=== PATIENT | female | born 1950 | race African-American/Black ===

== ENCOUNTER 2016-10-24 15:03 | Inpatient (IN) | payer MEDICARE, MEDICAID ==
[~2016-10-24] VITALS: Ht 160 cm; Wt 72.6 kg
[~2016-10-24 15:03] MED LIST: GLIP5TAB73 PO; METF500T4 PO
[2016-10-24] MEDS ORDERED: SODIUM CHLORIDE 0.9% 1,000 ML IV ONE (15:17)
[2016-10-24] MEDS ORDERED: IPRATROPIUM BROMIDE (0.02%) 0.5MG/2.5ML NEB HHN STA (15:23)
[2016-10-24] MEDS ORDERED: ALBUTEROL (0.083%) 2.5MG/3ML NEB HHN STA (15:23)
[2016-10-24] MEDS ORDERED: LEVOFLOXACIN 500MG PREMIX 100 ML IV ONE (15:30)
[2016-10-24 16:06] LABS: BASOPHILS % 0.7 % (0.0-2.0); EOSINOPHILS % 1.6 % (0.0-5.0); HEMATOCRIT. 38.7 % (36.0-48.0); HEMOGLOBIN. 12.4 g/dL (12.0-16.0); LYMPHOCYTES % 35.7 % (20.0-50.0); MEAN CORPUSCULAR HEMOGLOBIN 26.6 pg (28.0-32.0); MEAN CORPUSCULAR HGB CONC 32.1 g/dL (31.0-37.0); MEAN CORPUSCULAR VOLUME 82.8 fL (81.0-99.0); MEAN PLATELET VOLUME 8.5 fl (7.4-10.4); MONOCYTES % 7.5 % (2.0-8.0); NEUTROPHILS % 54.5 % (40.0-76.0); PLATELET 398 x1000/uL (130-400); RED BLOOD CELL COUNT 4.67 mill/uL (4.2-5.4); WHITE BLOOD COUNT 11.6 x1000/uL (4.5-11.0)
[2016-10-24 16:07] LABS: PARTIAL THROMBOPLASTIN TIME 27.7 sec (24.0-34.0); PROTHROMBIN TIME 10.3 sec
[2016-10-24 16:10] LABS: ALANINE AMINOTRANSFERASE 29 IU/L (13-61); ALBUMIN 3.2 g/dL (3.4-5.0); ANION GAP 14; CALCIUM 9.3 mg/dL (8.5-10.1); CARBON DIOXIDE 29 mEq/L (21-32); CHLORIDE 102 mEq/L (98-107); INDEX HEMOLYSI 1 (1-3); INDEX ICTERIC 1 (1-4); INDEX LIPEMIC 1 (1-3); UREA NITROGEN BLOOD 15 mg/dL (7-21)
[2016-10-24 16:13] LABS: CREATINE KINASE 116 IU/L (26-192); eGFR > 60 mL/min (>60)
[2016-10-24 16:15] LABS: CREATINE KINASE MB FRACTION < 0.5 ng/mL (0.5-3.6); NT PRO B-TYPE NATRIURETIC PEP 404 pg/mL (5-125); TROPONIN I < 0.02 ng/mL (0.00-0.04)
[2016-10-24 16:56] LABS: CLARITY URINE CLOUDY (CLEAR); COLOR URINE YELLOW (YELLOW); GLUCOSE URINE 1+ (NEGATIVE); KETONES URINE NEGATIVE (NEGATIVE); LEUKOCYTE ESTERASE URINE NEGATIVE (NEGATIVE); NITRITE URINE NEGATIVE (NEGATIVE); OCCULT BLOOD URINE NEGATIVE (NEGATIVE); PH URINE 7.5 (4.5-8.0); PROTEIN URINE 2+ (NEGATIVE); SPECIFIC GRAVITY URINE 1.023 (1.005-1.030)
[2016-10-24 17:36] LABS: MUCUS URINE TRACE /lpf (< = 2+); RBC URINE 0-2 /hpf (0-2); SQUAMOUS EPITHELIAL CELL URINE 1+ /lpf (RARE/1+); WBC URINE 0-2 /hpf (0-2)
[2016-10-24 17:51] LABS: BACTERIA URINE 1+
[2016-10-24] MEDS ORDERED: HYDROCODONE/ACETAMINOPHEN 5/325MG TABLET PO PRN (18:45)
[2016-10-24] MEDS ORDERED: ONDANSETRON HCL 4MG/2ML VIAL IV PRN (18:45)
[2016-10-24] MEDS ORDERED: ACETAMINOPHEN 325MG TABLET PO PRN (18:45)
[2016-10-24] MEDS ORDERED: GUAIFENESIN 200MG/10ML SUGAR FREE UDC PO PRN (18:45)
[2016-10-24] MEDS ORDERED: CLONIDINE 0.1MG TABLET PO PRN (19:00)
[2016-10-24] MEDS ORDERED: DEXTROSE 50% WATER 50ML SYRINGE IV PRN (19:15)
[2016-10-24] MEDS ORDERED: SODIUM CHLORIDE 0.9% 1,000 ML IV SCH (19:17)
[2016-10-24 20:00] VITALS: BP 141/68
[2016-10-24] MEDS: BLOOD SUGAR DIAGNOSTIC STRIP TEST SCH (21:00)
[2016-10-24] MEDS: ENOXAPARIN 40MG/0.4ML SYR SUBCUT SCH ×3 (21:00→22:46)
[2016-10-24] MEDS: AZITHROMYCIN 500 MG in DEXT 5% WATER 250 ML IV SCH (22:39)
[2016-10-24] MEDS: INSULIN LISPRO 100 UNITS/ML SUBCUT SCH (23:06)
[2016-10-25] VITALS: BP 132/62
[2016-10-25 04:00] VITALS: BP 138/63
[2016-10-25 06:40] LABS: BASOPHILS % 0.7 % (0.0-2.0); EOSINOPHILS % 1.5 % (0.0-5.0); HEMATOCRIT. 34.4 % (36.0-48.0); HEMOGLOBIN. 11.2 g/dL (12.0-16.0); LYMPHOCYTES % 37.5 % (20.0-50.0); MEAN CORPUSCULAR HEMOGLOBIN 26.9 pg (28.0-32.0); MEAN CORPUSCULAR HGB CONC 32.5 g/dL (31.0-37.0); MEAN CORPUSCULAR VOLUME 82.7 fL (81.0-99.0); MEAN PLATELET VOLUME 8.6 fl (7.4-10.4); MONOCYTES % 8.7 % (2.0-8.0); NEUTROPHILS % 51.6 % (40.0-76.0); PLATELET 370 x1000/uL (130-400); RED BLOOD CELL COUNT 4.16 mill/uL (4.2-5.4); RED CELL DISTRIBUTION WIDTH 13.8 % (11.6-14.6); WHITE BLOOD COUNT 10.6 x1000/uL (4.5-11.0)
[2016-10-25 07:04] LABS: CHLORIDE 103 mEq/L (98-107); INDEX HEMOLYSI 1 (1-3); INDEX ICTERIC 1 (1-4); INDEX LIPEMIC 1 (1-3)
[2016-10-25] MEDS: BLOOD SUGAR DIAGNOSTIC STRIP TEST SCH ×4 (07:06→21:00)
[2016-10-25 07:23] LABS: ANION GAP 12; CALCIUM 8.9 mg/dL (8.5-10.1); CARBON DIOXIDE 29 mEq/L (21-32); UREA NITROGEN BLOOD 12 mg/dL (7-21); eGFR > 60 mL/min (>60)
[2016-10-25 08:00] VITALS: BP 177/85
[2016-10-25] MEDS: METFORMIN HCL 500MG TABLET PO SCH ×2 (08:27→18:16)
[2016-10-25] MEDS: ASPIRIN 81MG TABLET PO SCH (08:27)
[2016-10-25] MEDS: INSULIN LISPRO 100 UNITS/ML SUBCUT SCH ×4 (08:27→21:00)
[2016-10-25] MEDS: GLIPIZIDE 5MG TABLET PO SCH ×2 (08:27→18:15)
[2016-10-25 12:00] VITALS: BP 158/73
[2016-10-25] MEDS: AMLODIPINE 5MG TABLET PO SCH ×2 (13:20→22:04)
[2016-10-25] MEDS: INSULIN DETEMIR UD 100 UNITS/ML SYR SUBCUT SCH (14:30)
[2016-10-25 16:00] VITALS: BP 129/88
[2016-10-25] MEDS: CEFTRIAXONE 1 G PREMIX 50 ML IV SCH (18:16)
[2016-10-25 20:00] VITALS: BP 126/73
[2016-10-25] MEDS: AZITHROMYCIN 500 MG in DEXT 5% WATER 250 ML IV SCH (22:01)
[2016-10-25] MEDS: ENOXAPARIN 40MG/0.4ML SYR SUBCUT SCH (22:02)
[2016-10-25] MEDS: LISINOPRIL 10MG TABLET PO SCH (22:03)
[2016-10-26] VITALS: BP 133/53
[2016-10-26 04:00] VITALS: BP 148/71
[2016-10-26] MEDS: BLOOD SUGAR DIAGNOSTIC STRIP TEST SCH ×4 (07:30→21:39)
[2016-10-26] MEDS: GLIPIZIDE 5MG TABLET PO SCH ×2 (07:31→18:02)
[2016-10-26 08:00] VITALS: BP 142/85
[2016-10-26] MEDS: METFORMIN HCL 500MG TABLET PO SCH ×2 (08:25→18:02)
[2016-10-26] MEDS: ASPIRIN 81MG TABLET PO SCH (08:26)
[2016-10-26] MEDS: AMLODIPINE 5MG TABLET PO SCH ×2 (08:26→22:02)
[2016-10-26] MEDS: LISINOPRIL 10MG TABLET PO SCH (08:26)
[2016-10-26] MEDS: INSULIN LISPRO 100 UNITS/ML SUBCUT SCH ×4 (08:27→22:10)
[2016-10-26] MEDS: INSULIN DETEMIR UD 100 UNITS/ML SYR SUBCUT SCH (11:09)
[2016-10-26 12:00] VITALS: BP 142/68
[2016-10-26 16:00] VITALS: BP 113/64
[2016-10-26] MEDS: CEFTRIAXONE 1 G PREMIX 50 ML IV SCH (18:06)
[2016-10-26 20:00] VITALS: BP 139/77
[2016-10-26] MEDS: AZITHROMYCIN 500 MG in DEXT 5% WATER 250 ML IV SCH (22:01)
[2016-10-26] MEDS: ENOXAPARIN 40MG/0.4ML SYR SUBCUT SCH (22:01)
[2016-10-27] VITALS: BP 152/76
[2016-10-27 04:00] VITALS: BP 128/67
[2016-10-27] MEDS: BLOOD SUGAR DIAGNOSTIC STRIP TEST SCH ×3 (07:21→17:02)
[2016-10-27] MEDS: GLIPIZIDE 5MG TABLET PO SCH ×2 (07:21→17:20)
[2016-10-27] MEDS: METFORMIN HCL 500MG TABLET PO SCH ×2 (08:16→17:50)
[2016-10-27] MEDS: ASPIRIN 81MG TABLET PO SCH (08:16)
[2016-10-27] MEDS: INSULIN LISPRO 100 UNITS/ML SUBCUT SCH ×3 (08:17→17:50)
[2016-10-27] MEDS ORDERED: AZITHROMYCIN 500 MG TABLET PO SCH (09:00)
[2016-10-27] MEDS: AMLODIPINE 5MG TABLET PO SCH (09:44)
[2016-10-27] MEDS: INSULIN DETEMIR UD 100 UNITS/ML SYR SUBCUT SCH (10:42)
[2016-10-27 17:26] VITALS: BP 119/64
[2016-10-27] MEDS: CEFTRIAXONE 1 G PREMIX 50 ML IV SCH (18:00)
== END 2016-10-27 18:15 | disposition home health service (06) | DRG 139 ==
LOC: ER 15:30 → 6EST 16:36
PROVIDERS: ADMIT Hospitalist; ATTEND Hospitalist
DX: J18.9 Pneumonia, unspecified organism (principal); R65.10 Systemic inflammatory response syndrome (SIRS) of non-infectious origin without acute organ dysfunction; E11.51 Type 2 diabetes mellitus with diabetic peripheral angiopathy without gangrene; E44.1 Mild protein-calorie malnutrition; E11.65 Type 2 diabetes mellitus with hyperglycemia; I10 Essential (primary) hypertension; Z89.512 Acquired absence of left leg below knee; Z68.28 Body mass index [BMI] 28.0-28.9, adult; Z79.84 Long term (current) use of oral hypoglycemic drugs
CPT/HCPCS: 36415; 71010; 80048; 80053; 80061; 81001; 82550; 82553; 82962; 83036; 83605; 83880; 84484; 85025; 85610; 85730; 87040; 87086; 93005; 93306; 94640; 96365; 97161; 99285; J0456; J0696; J1650; J1815; J1956; J7030; J7040; J7060; J7611